=== PATIENT | male | born 1980 | race African-American/Black ===

== ENCOUNTER 2016-08-18 08:52 | Day surgery (SDC) | payer MEDICARE, OTHER ==
[2016-08-17 13:48] VITALS: Ht 193 cm; Wt 117.0 kg
[2016-08-18] VITALS (12 sets, daily range): BP systolic 128–149; BP diastolic 70–87; PULSE 58–72; RESP 12–25
[~2016-08-18] VITALS: Ht 193 cm; Wt 117.0 kg
[~2016-08-18 08:52] MED LIST: ACETAMINOPHEN 1000 MG/100 ML IVPB ONE
--- NOTE | 2016-08-18 09:57 | HPN ---
Date/Time of Note Date/Time of Note DATE: 08/18/16 TIME: 09:57 Interval H&P Admission Note Pt. seen H&P reviewed: No system changes JOSE SAUNDERS DPM Aug 18, 2016 09:57
[2016-08-18] MEDS ORDERED: BUPIVACAINE 0.25% (MPF) 30 ML INJ ONE (09:59)
[2016-08-18] MEDS ORDERED: PROPOFOL 100 ML ONE (10:27)
[2016-08-18] MEDS ORDERED: FENTAnyl 50 MCG/ML VIAL ONE ×2 (10:27→11:24)
[2016-08-18] MEDS ORDERED: MIDAZOLAM 1 MG/ML 2 ML INJ ONE (10:27)
[2016-08-18] MEDS ORDERED: CEFAZOLIN 1 GM INJ ONE (10:27)
[2016-08-18] MEDS ORDERED: METOCLOPRAMIDE 10 MG INJ ONE (10:36)
[2016-08-18] MEDS ORDERED: KETOROLAC 30 MG INJ ONE (10:36)
[2016-08-18] MEDS ORDERED: ONDANSETRON 4 MG INJ ONE (10:36)
[2016-08-18] MEDS ORDERED: DEXAMETHASONE 4 MG/ML 1 ML INJ ONE (10:36)
[2016-08-18] MEDS ORDERED: POLYMYXIN/BACITRACIN 1L IRRIG IRR ONE (10:58)
[2016-08-18] MEDS ORDERED: ROPIVACAINE 0.5 % 30 ML VIAL ONE (11:24)
[2016-08-18] MEDS ORDERED: HYDROCODONE/APAP (10/325) TAB PO PRN (12:00)
[2016-08-18] MEDS ORDERED: hydrALAzine 20 MG INJ IV PRN (13:00)
[2016-08-18] MEDS ORDERED: MEPERIDINE 25 MG INJ IV PRN (13:00)
[2016-08-18] MEDS ORDERED: EPHEDrine SULFATE 50 MG/5 ML SYG IV PRN (13:00)
[2016-08-18] MEDS ORDERED: LABETALOL HCL 20MG INJ IV PRN (13:00)
[2016-08-18] MEDS ORDERED: DIPHENHYDRAMINE 50 MG INJ IV PRN (13:00)
[2016-08-18] MEDS ORDERED: ONDANSETRON 4 MG INJ IV PRN (13:00)
[2016-08-18] MEDS ORDERED: morphine (1 MG/ML) 10ML SYRINGE IV PRN ×3 (13:00)
[2016-08-18] MEDS ORDERED: HYDROmorphONE (0.2 MG/ML) 10ML SYG IV PRN ×3 (13:00)
--- NOTE | 2016-08-18 14:36 | OPR ---
Date/Time of Note Date/Time of Note DATE: 08/18/16 TIME: 14:36 Operative Report Procedure Date: Aug 18, 2016 Preoperative Diagnosis Hallux abductovalgus left foot Left foot pain Postoperative Diagnosis Hallux abductovalgus left foot Left foot pain Operation Performed Bunionectomy left foot with internal fixation Surgeon: JOSE SAUNDERS DPM Anesthesia: MAC Estimated Blood Loss: minimal Specimens Bone from left foot Joint capsule from left foot Complications: None Pt Condition Post Procedure: stable Disposition: PACU Indications This is a pleasant 35-year-old male patient who has been suffering with left foot painful bunion deformity for the past several years, worsened for the past year. Patient was evaluated and was found to have severe hallux abductovalgus, tender to examination. Patient has failed the following treatments: Shoe gear modification, activity modification, NSAIDs and orthotics. Patient seeks surgical management. Recommended procedure: Left foot bunionectomy with internal fixation. Risks and complications of this type of surgery was discussed with patient in great detail. Risks and complications discussed included, but are not limited to, postoperative infection, postoperative pain, hardware failure, malunion, nonunion, delayed union, failure of surgery to correct the problem, need for additional surgical procedures, deep venous thrombosis, limb loss and loss of life. Patient understands the discussion and agrees to the procedure. An informed consent was signed, obtained and placed in the chart. No guarantees or warrantees was given or implied as to the outcome of the procedure either in verbal or written form. Operative\Procedure Findings Severe left foot bunion deformity Procedure Description Procedure in detail: The patient was brought into the operating room and was placed on the operating table in the supine position. Mild sedation was administered to the patient by the anesthesiologist. I injected the left foot with a total 20 cc of a one-to- one mixture of 2% lidocaine plain and 0.5% Marcaine plain. A pneumatic ankle tourniquet was applied to the left ankle. All bony prominences were padded probably. A timeout was called by the circulating nurse. The correct site of surgery was identified. All instrumentation was checked. All necessary preoperative medications have been administered. The left foot was scrubbed, prepped and draped in the usual aseptic manner. An Esmarch bandage was utilized to exsanguinate the foot and the pneumatic ankle tourniquet was inflated to 250 mmHg pressure. Procedure #1: Attention was directed to the left foot: A 6 cm linear incision was made over the dorsal medial aspect of the left first metatarsal phalangeal joint using a #15 blade. Bleeders were cauterized as necessary. Dissection was deepened through the subcutaneous layer to the joint capsule. Care was taken to identify and protect vital neurovascular structures. Dissection continued to the extensor hallucis tendon which was retracted laterally. A capsulotomy was performed using a #10 blade. The first metatarsal phalangeal joint was dissected and exposed. Next the first interspace was bluntly dissected using blunt instrumentation. The adductor tendon was resected off of the medial base the proximal phalanx releasing the abductor force of the hallux. Next, the medial bony prominence of the metatarsal head was cut using a power saw. A Chevron type osteotomy was made at the head of the first metatarsal and the capital fragment was translated laterally to the desired position. I inserted 3.5 mm cannulated screw for permanent fixation. The remaining medial shelf of bone was cut and passed from the field. All rough bony edges were then smoothed using a power rasp. Bunion was reduced. The wound was flushed with copious amounts of sterile normal saline. Capsulorrhaphy was performed and the joint capsule was closed using 3- 0 Vicryl simple suture technique. Subcutaneous layer was closed using 4-0 Vicryl suture and skin was closed using 5-0 Monocryl and subcuticular stitch pattern. Steri-Strips were applied. Postop injection of 0.5% Marcaine plain was given about 10 cc as a Degroot block. Sterile dressing was applied. The pneumatic ankle tourniquet was deflated at this time and prompt hyperemic response was noted to digits of the left foot. The patient tolerated the procedure and anesthesia well. He was transferred to the recovery room with vital signs stable and vascular status intact to the left foot. Patient will be discharged home after postoperative monitoring. Postoperative orders have been written. Patient will be followed up in 1 week. JOSE SAUNDERS DPM Aug 18, 2016 14:36
--- NOTE | 2016-08-19 14:33 | RADRPT ---
PROCEDURE: XR Left Foot. CLINICAL INDICATION: Left foot pain. TECHNIQUE: Three views. Frontal, lateral, and oblique. COMPARISON: None. FINDINGS: There has been osteotomy of the first metatarsal distally with a single screw transfixing the osteot andrea. Alignment is satisfactory. Gas is present in the soft tissues from the recent surgery. The soft tissues are otherwise unremarkable. The articular surfaces are otherwise intact. There is no lytic or blastic lesion. There is no other radiopaque foreign body. IMPRESSION: 1. Satisfactory postoperative appearance of the left foot. RPTAT: QQ .Kevon Aguero MD, Date Time Electronically viewed and signed by .Kevon Aguero MD, on 08/19/2016 14:32 .R/
== END 2016-08-18 13:35 | disposition home or self-care (01) ==
LOC: SDS 08:52
PROVIDERS: ATTEND Podiatrist Foot & Ankle Surgery
DX: M20.12 Hallux valgus (acquired), left foot (principal)
CPT/HCPCS: 88304; 88311; J0131; J0690; J1100; J1885; J2250; J2405; J2765; J2795; J3010